=== PATIENT | female | born 1965 | race Caucasian/White ===

== ENCOUNTER 2024-06-20 18:43 | Emergency (ER) | payer MEDICAID, SELFPAY ==
[2024-06-20 19:09] VITALS: BP 111/72; PULSE 65; RESP 18; TEMP 36.9; O2SAT 96; BMI 24.2
--- NOTE | 2024-06-20 19:27 | USR_ITS ---
PROCEDURE INFORMATION: Exam: US Duplex Left Lower Extremity Veins, Limited Exam date and time: 06/20/2024 10:56 PM Age: 58 years old Clinical indication: Pain; Leg, upper and leg, lower; Left; Additional info: Left-sided calf pain and swelling concern for dvt TECHNIQUE: Imaging protocol: Real-time duplex ultrasound of the left extremity with 2-D genao scale, color Doppler flow and spectral waveform analysis including responses to compression and other maneuvers (when performed) with image documentation. Limited exam focused on the left lower extremity veins. COMPARISON: CR (LOW EXM, ) 06/20/2024 10:10 PM FINDINGS: Left deep veins: The common femoral, femoral, proximal profunda femoral veins are patent without thrombus. Normal Doppler waveforms. Normal compressibility and/or augmentation response. Occlusive acute deep venous thrombosis within popliteal and peroneal veins as well as tibioperoneal trunk. Posterior tibial vein is patent. Superficial veins: Greater saphenous vein at the saphenofemoral junction is patent without thrombus. Soft tissues: Mild soft tissue edema. US/[place] [id number] IMPRESSION: Positive for acute deep venous thrombosis within left popliteal vein, tibioperoneal trunk and extending into the peroneal vein. COMMENTS: THIS REPORT CONTAINS FINDINGS THAT MAY BE CRITICAL TO PATIENT CARE. The exam findings were verbally communicated by me to MARIANNE DREW via telephone conference at 11:39 PM CDT on 06/20/2024. The findings were acknowledged and understood.
--- NOTE | 2024-06-20 22:07 | ED_ITS ---
HPI - Extremity Problem 2 General: Chief complaint: Extremity Problem,Nontraumatic Stated complaint: Blood cloat and L foot Injury Time Seen by Provider: 06/20/24 22:03 History of Present Illness: 58-year-old female who says couple days ago some boards fell on her foot. She had a large bruise but then think she broke it. She said there was some bruising and pulled blood at the base of her feet. However today she woke up with severe groin pain going from the back of her knee up to her inner groin. She is concerned she has a blood clot and would like an ultrasound. Related Data Previous Rx's ?Medication ?Instructions ?Recorded apixaban 5 mg (74 tabs) tablets in 5 mg PO BID #74 ea 06/21/24 a dose pack (Eliquis DVT-PE Treat 30D Start) Allergies Allergy/AdvReac Type Severity Reaction Status Date / Time diclofenac (From [employer]) Allergy ALGY-Rash Verified 06/20/24 22:15 misoprostol (From [employer]) Allergy ALGY-Rash Verified 06/20/24 22:15 Review of Systems 2 Narrative: Constitutional symptoms: Negative except as documented in HPI. Skin symptoms: Negative except as documented in HPI. Eye symptoms: Negative except as documented in HPI. ENMT symptoms: Negative except as documented in HPI. Respiratory symptoms: Negative except as documented in HPI. Cardiovascular symptoms: Negative except as documented in HPI. Gastrointestinal symptoms: Negative except as documented in HPI. Genitourinary symptoms: Negative except as documented in HPI. Musculoskeletal symptoms: Negative except as documented in HPI. Neurologic symptoms: Negative except as documented in HPI. Psychiatric symptoms: Negative except as documented in HPI. Endocrine symptoms: Negative except as documented in HPI. Physical Exam 2 Narrative: EXAM NARRATIVE: General: Alert, no acute distress. Skin: Warm, dry. Head: Normocephalic, atraumatic. Neck: Supple, trachea midline. Eye: Extraocular movements are intact. Ears, nose, mouth and throat: mucosa moist. Cardiovascular: Regular, Normal peripheral perfusion. Pain to the inner thigh. Possible swelling. Respiratory: Lungs are clear to auscultation, respirations are non-labored, breath sounds are equal, Symmetrical chest wall expansion. Gastrointestinal: Soft, Nontender, Non distended Musculoskeletal: Normal ROM, no deformity. Neurological: Alert and oriented, No focal neurological deficit observed. Psychiatric: Cooperative, appropriate mood & affect. Course 2 Vital Signs: Vital signs: Vital Signs Temperature 98.4 F 06/20/24 19:09 Pulse Rate 67 06/21/24 00:34 Respiratory Rate 16 06/21/24 00:34 Blood Pressure 137/85 06/21/24 00:34 Pulse Oximetry 96 06/21/24 00:34 Oxygen Delivery Me thod Room Air 06/21/24 00:34 MDM - Extremity (Nontraumatic) Medical Decision Making Ultrasound of the lower extremity: Positive for acute DVT within the left popliteal vein, tibial peroneal trunk and extending into the peroneal vein. This was reviewed and interpreted by myself the emergency room physician. I also reviewed the radiology report. Lab work: I reviewed and interpreted lab work personally. No significant abnormalities. Coags are normal. Reexamination: Patient's had no chest pain. No tachycardia. No shortness of breath. We discussed at length the need for follow-up. I provided them with literature from Eliquis and a coupon. Difficult to say if this was secondary to her injury. She will need discussed this with her primary when she gets 1 on determining length/duration of Eliquis therapy Assessment and plan: Foot injury DVT ? First dose Eliquis here in the emergency room. - Discharged home - Discussed plan with patient. Answered any questions. - Evaluation and treatment of this problem were appropriate in the emergency setting. Lab Data 06/21/24 00:25 06/21/24 00:25 Radiology Impressions Venous Duplex 06/20/24 19:27 IMPRESSION: Positive for acute deep venous thrombosis within left popliteal vein, tibioperoneal trunk and extending into the peroneal vein. COMMENTS: THIS REPORT CONTAINS FINDINGS THAT MAY BE CRITICAL TO PATIENT CARE. The exam findings were verbally communicated by me to SHERRI GOLDSTEIN via telephone conference at 11:39 PM CDT on 06/20/2024. The findings were acknowledged and understood. Foot X-Ray 06/20/24 22:08 IMPRESSION: No acute displaced fracture or dislocation. Laboratory Results WBC 7.94 10^3/uL (3.29-11.43) 06/21/24 00:25 RBC 4.90 10^6/uL (3.85-5.65) 06/21/24 00:25 Hgb 15.10 g/dL (11.27-16.99) 06/21/24 00:25 Hct 46.1 % (36-47) 06/21/24 00:25 MCV 94.1 fl (85-98) 06/21/24 00:25 MCH 30.8 pg (27-33) 06/21/24 00: MCHC 32.8 g/dL (30-55) 06/21/24 00: RDW 13.5 % (12.1-15.1) 06/21/24 00: Plt Count 249 10^3/cmm (157-399) 06/21/24 00: MPV 10.0 fL (7.4-10.4) 06/21/24 00: Neut % (Auto) 50.6 % 06/21/24 00: Lymph % (Auto) 38.9 % 06/21/24 00: Granite % (Auto) 6.2 % 06/21/24 00: Eos % (Auto) 3.4 % 06/21/24 00: Baso % (Auto) 0.6 % 06/21/24 00:25 Neut # (Auto) 4.02 10^3/uL (1.8-7.7) 06/21/24 00: Lymph # (Auto) 3.1 10^3/uL (0.8-4.8) 06/21/24 00:25 Granite # (Auto) 0.5 10^3/uL (0.2-0.9) 06/21/24 00:25 Eos # (Auto) 0.3 10^3/uL (0.0-0.8) 06/21/24 00:25 Baso # (Auto) 0.1 10^3/uL (0.0-0.1) 06/21/24 00:25 Nucleated RBC % (auto) 0 % 06/21/24: Nucleated RBCs # 0.0 /100WBC 06/21/24: PT 13.70 SECONDS (12.1-14.9) 06/21/24 00:25 INR 0.98 (0.8-1.2) 06/21/24 00: APTT 35.0 SECONDS (23.9-36.7) 06/21/24 00:25 Sodium 143 mmol/L (136-145) 06/21/24 00:25 Potassium 4.0 mmol/L (3.5-5.1) 06/21/24 00:25 Chloride 103 mmol/L (98-107) 06/21/24 00:25 Carbon Dioxide 30 mmol/L (22-29) H 06/21/24 00:25 Anion Gap 14.0 (5-19) 06/21/24 00:25 BUN 11 mg/dL (6-20) 06/21/24 00:25 Creatinine 0.9 mg/dL (0.5-0.9) 06/21/24 00:25 GFR Calculation 64.8 mL/min (90-130) L 06/21/24 00:25 Glucose 148 mg/dL (65-115) H 06/21/24 00:25 Calculated Osmolality 298 mOsm/kg (285-295) H 06/21/24 00:25 Calcium 9.8 mg/dL (8.5-10.5) 06/21/24 00:25 Total Bilirubin 0.4 mg/dL (0.15-1.2) 06/21/24 00:25 AST 13 U/L (0-32) 06/21/24 00:25 ALT 7 U/L (0-33) 06/21/24 00:25 Alkaline Phosphatase 100 U/L (35-105) 06/21/24 00:25 Total Protein 7.3 g/dL (6.6-8.7) 06/21/24 00:25 Albumin 4.4 g/dL (3.5-5.2) 06/21/24 00:25 Globulin 2.9 g/dL (1.3-4.6) 06/21/24 00:25 All radiology interpretation(s) finalized by discharge Discharge Plan Discharge Patient Disposition: Home Clinical Impression: Deep vein thrombosis of lower extremity Condition: Stable Prescriptions: New Desiree DVT-PE Treat 30D Start 5 mg (74 tabs) tablets,dose pack 5 mg PO BID Qty: 74 0RF Rx Instructions: 2 tabs (10 mg) BID x 7 days, then 1 tab BID Discharge Orders: Discharge ED (Routine); Ordered 06/21/24 Ordered By: Sherri Goldstein Discharge Diet: Usual diet Discharge Activity: Limit activity as instructed Patient Instructions: Apixaban (By mouth) (Eliquis), Deep Vein Thrombosis (ED), Opioid Safety, Pain Management Activity Restrictions/Additional Instructions: You will need to find follow-up with a primary provider as soon as possible. Please start making calls tomorrow. Return to the emergency room or seek medical attention if you develop chest pain or shortness of breath. Thank you for choosing [facility] for your healthcare needs today. Please realize this is an emergency room and that we are providing you with a medical screening exam and this may not be complete and all inclusive of all the testing and or work up that you may need to determine your ailment or severity of your illness. You have been screened and evaluated and felt safe for discharge. Health conditions do change or evolve sometimes and as such it is important that you follow up with your Primary Doctor to be re checked, 3-5 days is a general good time frame for follow up. You are always welcome to return to the ED for re assessment if your symptoms are worsening or you have new concerns Print Language: Dominican Coding Level of Care Code ED [facility]
--- NOTE | 2024-06-20 22:08 | XRR_ITS ---
PROCEDURE INFORMATION: Exam: XR Left Foot Exam date and time: 06/20/2024 10:10 PM Age: 58 years old Clinical indication: Injury or trauma; Fall; Blunt trauma; Foot; Left; Additional info: Foot injury TECHNIQUE: Imaging protocol: Radiologic exam of the left foot. Views: 3 or more views. COMPARISON: No relevant prior studies available. FINDINGS: Bones/joints: Radiopaque object projects over 2nd digit, presumably represents patient's ring. No acute displaced fracture or dislocation. No aggressive osseous lesions. Mild degenerative changes within the midfoot. Soft tissues: Normal. XR/XR foot LT min 3V* [id number] IMPRESSION: No acute displaced fracture or dislocation.
[2024-06-20] MEDS: apixaban 5 mg Tablet 10 MG PO (23:29)
[2024-06-20] MEDS: HYDROcodone-acetaminophen 5-325 mg Tablet 1 TAB PO (23:29)
[2024-06-21 00:34] VITALS: BP 137/85; PULSE 67; RESP 16; O2SAT 96
[2024-06-21 00:42] LABS: Basophils # 0.1 10^3/uL (0.0-0.1); Basophils % 0.6 %; Eosinophils # 0.3 10^3/uL (0.0-0.8); Eosinophils % 3.4 %; Hematocrit 46.1 % (36-47); Lymphocytes # 3.1 10^3/uL (0.8-4.8); Lymphocytes % 38.9 %; Mean Corpuscular HGB Conc 32.8 g/dL (30-55); Mean Corpuscular Hemoglobin 30.8 pg (27-33); Mean Corpuscular Volume 94.1 fl (85-98); Monocytes # 0.5 10^3/uL (0.2-0.9); Monocytes % 6.2 %; Neutrophils # 4.02 10^3/uL (1.8-7.7); Neutrophils % 50.6 %; Nucleated Red Blood Cells % 0 %; Platelet Count 249 10^3/cmm (157-399); Red Cell Distribution Width 13.5 % (12.1-15.1); White Blood Count 7.94 10^3/uL (3.29-11.43)
[2024-06-21 00:59] LABS: INR 0.98 (0.8-1.2)
[2024-06-21 01:03] LABS: Alanine Aminotransferase 7 U/L (0-33); Albumin Level 4.4 g/dL (3.5-5.2); Alkaline Phosphatase 100 U/L (35-105); Aspartate Amino Transferase 13 U/L (0-32); Blood Urea Nitrogen 11 mg/dL (6-20); Calcium 9.8 mg/dL (8.5-10.5); Carbon Dioxide 30 mmol/L (22-29); Chloride 103 mmol/L (98-107); Creatinine Clr Calc Pharmacy 69.1914; Globulin 2.9 g/dL (1.3-4.6); Glomerular Filtration Rate 64.8 mL/min (90-130); Glucose 148 mg/dL (65-115); Osmolality Calculated 298 mOsm/kg (285-295); Sodium 143 mmol/L (136-145); Total Bilirubin 0.4 mg/dL (0.15-1.2); Total Protein 7.3 g/dL (6.6-8.7)
[2024-06-21 01:49] VITALS: BP 130/78; PULSE 77; RESP 16; O2SAT 94
== END 2024-06-21 01:49 | disposition home or self-care (01) ==
PROVIDERS: Emergency Provider Emergency Medicine
DX: I82.432 Acute embolism and thrombosis of left popliteal vein (principal)
CPT/HCPCS: 36415; 73630; 80053; 85025; 85610; 85730; 93971; 99284; J9999

== ENCOUNTER 2024-07-12 09:55 | Outpatient (CLI) | payer MEDICAID, SELFPAY ==
[2024-07-12 10:37] LABS: Basophils % 0.4 %; Eosinophils # 0.3 10^3/uL (0.0-0.8); Eosinophils % 3.6 %; Hematocrit 46.6 % (36-47); Lymphocytes # 2.4 10^3/uL (0.8-4.8); Lymphocytes % 31.3 %; Mean Corpuscular HGB Conc 32.8 g/dL (30-55); Mean Corpuscular Hemoglobin 30.7 pg (27-33); Mean Corpuscular Volume 93.4 fl (85-98); Mean Platelet Volume 10.3 fL (7.4-10.4); Monocytes # 0.5 10^3/uL (0.2-0.9); Monocytes % 6.9 %; Neutrophils # 4.35 10^3/uL (1.8-7.7); Neutrophils % 57.5 %; Nucleated Red Blood Cells % 0 %; Platelet Count 230 10^3/cmm (157-399); Red Blood Count 4.99 10^6/uL (3.85-5.65); Red Cell Distribution Width 13.4 % (12.1-15.1); White Blood Count 7.55 10^3/uL (3.29-11.43)
[2024-07-12 10:56] LABS: Erythrocyte Sedimentation Rate 11 mm/hr (0-15)
[2024-07-12 11:02] LABS: Alanine Aminotransferase 6 U/L (0-33); Albumin Level 4.3 g/dL (3.5-5.2); Alkaline Phosphatase 87 U/L (35-105); Blood Urea Nitrogen 16 mg/dL (6-20); C Reactive Protein 3.2 mg/L (0.0-4.9); Calcium 10.4 mg/dL (8.5-10.5); Carbon Dioxide 28 mmol/L (22-29); Chloride 103 mmol/L (98-107); Chol HDL Ratio 5.23 mg/dL (0.0-4.40); Cholesterol 272 mg/dL (0-200); Glomerular Filtration Rate 57.4 mL/min (90-130); Glucose 88 mg/dL (65-115); HDL Cholesterol 52 mg/dL (60-100); LDL Cholesterol Calculated 196 mg/dL (50-129); LDL HDL Ratio 3.77 RATIO (0.00-3.22); Osmolality Calculated 291 mOsm/kg (285-295); Sodium 140 mmol/L (136-145); Thyroid Stimulating Hormone 3.46 uIU/mL (0.27-4.20); Total Bilirubin 0.7 mg/dL (0.15-1.2); Total Protein 7.3 g/dL (6.6-8.7); Triglycerides 121 mg/dL (0-150)
[2024-07-12 11:08] LABS: Anion Gap 13.3 (5-19); Aspartate Amino Transferase 15 U/L (0-32); Potassium 4.3 mmol/L (3.5-5.1)
== END 2024-07-12 09:56 | disposition home or self-care (01) ==
LOC: LAB 09:58
PROVIDERS: PCP Family Medicine; Visit Provider Family Medicine
DX: M35.00 Sjogren syndrome, unspecified (principal); Z13.6 Encounter for screening for cardiovascular disorders
CPT/HCPCS: 36415; 80053; 80061; 84443; 85025; 85651; 86038; 86140; 86200; 86431

== ENCOUNTER → 2024-08-19 10:02 | Outpatient (BNVA) | payer MEDICAID, SELFPAY | PROVIDERS: PCP Family Medicine; Visit Provider Family Medicine | DX: Z01.419 Encounter for gynecological examination (general) (routine) without abnormal findings (principal) | CPT/HCPCS: 87624 ==

== ENCOUNTER 2024-08-29 09:05 | Outpatient (CLI) | payer MEDICAID, SELFPAY ==
--- NOTE | 2024-08-29 09:15 | CT_ITS ---
WS: [id number] LDCT LUNG CANCER SCREENING TECHNIQUE: Noncontrast CT of the chest with coronal and sagittal reformatted images. CLINICAL INFORMATION: screening COMPARISON: None. DLP: 43.02 mGy.cm DIvol: Mean CTDIvol: 0.80 (mGy) All CT scans at [facility] use at least one of these dose optimization techniques: automated exposure control; mA and/or kV adjustment per patient size (includes targeted exams where dose is matched to clinical indication); or iterative reconstruction. FINDINGS: Mild chronic emphysematous changes. Noncalcified subpleural nodule LEFT lower lobe measuring 6 mm. Noncalcified nodules LEFT upper lobe the largest measuring 7 mm. Tiny subpleural nodule RIGHT upper lobe measuring 5 mm. Noncalcified nodule RIGHT upper lobe. RIGHT infrahilar nodule measuring 5 mm. Mild aortic calcification. Mild coronary calcification. No mediastinal or hilar lymphadenopathy. No axillary lymphadenopathy. Moderate thoracic kyphosis. Chronic anterior wedging in the midthoracic spine with endplate Schmorl's nodes. CT/CT lung screening [id number] IMPRESSION: Several noncalcified nodules the largest measuring 6 to 7 mm. Recommend 6-month follow-up. LUNG-RADS: 3-Probably Benign FOLLOW UP: 6 Month LDCT
--- NOTE | 2024-08-29 09:40 | MM_ITS ---
WS: [id number] BILATERAL 3D TOMOSYNTHESIS DIGITAL SCREENING MAMMOGRAPHY WITH CAD CLINICAL INFORMATION: screening HISTORY: Screening mammogram. No current complaints. COMPARISON: 2020 TECHNIQUE: Bilateral CC and MLO views. FINDINGS: The breasts are composed of heterogeneous fibroglandular density tissue, which can limit the detection of small underlying mass lesions. Lucent centered calcification LEFT breast. Biopsy clip RIGHT breast. Numerous tiny punctate calcifications upper outer breast bilaterally RIGHT greater than LEFT. Recommend spot magnification views in further evaluation. MM/MM [facility] tomosynthesis [id number] IMPRESSION: DENSITY:The breasts are heterogeneously dense, which may obscure small masses. BI-RADS: 0 - Incomplete: Need additional imaging evaluation FOLLOW UP: Need Additional Imaging Recommend bilateral spot magnification views of the calcifications
== END 2024-08-29 09:06 | disposition home or self-care (01) ==
PROVIDERS: PCP Family Medicine; Visit Provider Family Medicine
DX: Z12.31 Encounter for screening mammogram for malignant neoplasm of breast (principal); Z12.2 Encounter for screening for malignant neoplasm of respiratory organs; F17.219 Nicotine dependence, cigarettes, with unspecified nicotine-induced disorders; R92.333 Mammographic heterogeneous density, bilateral breasts; R92.1 Mammographic calcification found on diagnostic imaging of breast; J43.8 Other emphysema; R91.8 Other nonspecific abnormal finding of lung field; I70.0 Atherosclerosis of aorta; I25.10 Atherosclerotic heart disease of native coronary artery without angina pectoris; M40.294 Other kyphosis, thoracic region; M48.54XA Collapsed vertebra, not elsewhere classified, thoracic region, initial encounter for fracture; M51.44 Schmorl's nodes, thoracic region
CPT/HCPCS: 71271; 77063; 77067

== ENCOUNTER 2024-09-12 13:14 | Outpatient (CLI) | payer MEDICAID, SELFPAY ==
--- NOTE | 2024-09-12 13:17 | MM_ITS ---
WS: [id number] BILATERAL 3D TOMOSYNTHESIS DIGITAL DIAGNOSTIC MAMMOGRAPHY WITH CAD CLINICAL INFORMATION: R92.8 ABNORMAL MAMMO/ CALCS HISTORY: Spot magnification views COMPARISON: 08/29/2024 TECHNIQUE: Bilateral CC, MLO, and ML views. FINDINGS: The breasts are composed of heterogeneous fibroglandular density, which can limit the detection of small underlying mass lesions. Diffuse fine amorphous calcifications in the upper outer quadrants of both breasts. Given the bilateral distribution, these are probably benign due to fibrocystic change but recommend 6-month follow-up to confirm stability. MM/MM diag tomosynthesis [id number] IMPRESSION: DENSITY: The breasts are heterogeneously dense, which may obscure small masses. BI-RADS: 3 - Probably Benign FOLLOW UP: 6 Month Follow-up Recommend 6-month follow-up bilateral diagnostic mammography with spot modifica tion views of the calcifications
== END 2024-09-12 13:15 | disposition home or self-care (01) ==
LOC: RAD 13:14
PROVIDERS: PCP Family Medicine; Visit Provider Family Medicine
DX: R92.8 Other abnormal and inconclusive findings on diagnostic imaging of breast (principal); R92.333 Mammographic heterogeneous density, bilateral breasts; R92.1 Mammographic calcification found on diagnostic imaging of breast
CPT/HCPCS: 77062; G0279

== ENCOUNTER → 2024-11-21 11:33 | Outpatient (BNVA) | payer MEDICAID, SELFPAY | PROVIDERS: PCP Family Medicine; Referring Provider Family Medicine; Visit Provider Internal Medicine Rheumatology | DX: M25.50 Pain in unspecified joint (principal) | CPT/HCPCS: 36415; 80076; 82306; 82565; 83520; 85025; 85651; 86140; 86235; 86480; 86704; 86803; 87340 ==

== ENCOUNTER 2025-03-17 10:26 | Outpatient (CLI) | payer MEDICAID, SELFPAY ==
--- NOTE | 2025-03-17 10:30 | MM_ITS ---
WS: [id number] BILATERAL 3D TOMOSYNTHESIS DIGITAL DIAGNOSTIC MAMMOGRAPHY WITH CAD CLINICAL INFORMATION: bilateral breast calcifications - 6 month follow-up COMPARISON: 08/29/2024 TECHNIQUE: Bilateral CC, MLO, and ML views. FINDINGS: The breasts are composed of heterogeneous fibroglandular density, which can limit the detection of small underlying mass lesions. Again seen are the diffuse fine amorphous calcifications in the upper outer quadrants of both breasts. This is unchanged compared to previous and recommend return to annual screening mammography. Stable biopsy clip RIGHT breast. No suspicious focal mass, asymmetry, calcifications, or architectural distortion. No evidence of malignancy. MM/MM diag BI tomosynthesis [id number] IMPRESSION: DENSITY: The breasts are heterogeneously dense, which may obscure small masses. BI-RADS: 2 - Benign FOLLOW UP: 1 Year Follow-up Recommend return to annual screening mammography.
== END 2025-03-17 10:27 | disposition home or self-care (01) ==
LOC: RAD 10:26
PROVIDERS: PCP Family Medicine; Visit Provider Family Medicine
DX: Z12.31 Encounter for screening mammogram for malignant neoplasm of breast (principal); R92.1 Mammographic calcification found on diagnostic imaging of breast; R92.333 Mammographic heterogeneous density, bilateral breasts; R92.323 Mammographic fibroglandular density, bilateral breasts; Z96.89 Presence of other specified functional implants
CPT/HCPCS: 77062; G0279